=== PATIENT | female | born 1970 | race Caucasian/White ===

== ENCOUNTER 2018-06-02 17:29 | Emergency (ER) | payer SELFPAY ==
[~2018-06-02] VITALS: Ht 162.6 cm; Wt 65.9 kg
[2018-06-02 17:31] VITALS: BP 135/79
[2018-06-02] MEDS ORDERED: AMOX1255 PO (17:42)
[2018-06-02] MEDS ORDERED: HYDROCODONE/ACETAMINOPHEN 5-325 MG TABLET PO ONE (20:15)
== END 2018-06-02 20:27 | disposition home or self-care (01) ==
LOC: EMS 17:31
DX: K08.89 Other specified disorders of teeth and supporting structures (principal); Z79.899 Other long term (current) drug therapy

== ENCOUNTER 2018-09-21 22:48 | Emergency (ER) | payer SELFPAY ==
[~2018-09-21] VITALS: Ht 165.1 cm; Wt 68.6 kg
[~2018-09-21 22:48] MED LIST: AMOX1255 PO
[2018-09-22 00:04] LABS: BASOPHILS % (AUTO) 0.6 % (0.0-2.0); EOSINOPHILS % (AUTO) 0.9 % (1.0-6.0); HEMATOCRIT 45.3 % (36-46); HEMOGLOBIN 15.3 g/dL (12.0-16.0); LYMPHOCYTES # (AUTO) 1.1 K/uL (1.0-4.8); LYMPHOCYTES % (AUTO) 20.1 % (22.0-44.0); MEAN CORPUSCULAR HEMOGLOBIN 30.1 pg (26.0-34.0); MEAN CORPUSCULAR HGB CONC 33.7 G/dL (31.0-37.0); MEAN CORPUSCULAR VOLUME 89 fL (80-100); MONOCYTES # (AUTO) 0.6 K/uL (0.1-1.0); MONOCYTES % (AUTO) 11.4 % (2.0-9.0); NEUTROPHILS # (AUTO) 3.7 K/uL (1.8-7.7); PLATELET COUNT (AUTO) 194 K/uL (150-450); RED BLOOD CELL COUNT(AUTO) 5.07 MIL/uL (4.00-5.20); RED CELL DISTRIBUTION WIDTH 13.5 % (11.5-14.5)
[2018-09-22 00:09] LABS: APPEARANCE,URINE CLOUDY (CLEAR); BILIRUBIN,URINE NEGATIVE (NEGATIVE); GLUCOSE, URINE (UA) >=1000 mg/dL (NEGATIVE); KETONES,URINE >=80 mg/dL (NEGATIVE); LEUKOCYTE ESTERASE ,URINE MODERATE (NEGATIVE); NITRATE,URINE NEGATIVE (NEGATIVE); OCCULT BLOOD,URINE NEGATIVE (NEGATIVE); PH,URINE 6.5 (5.0-8.0); PROTEIN,URINE TRACE (NEGATIVE)
[2018-09-22 00:11] LABS: ANION GAP 9 mmol/L (8-16); CALCIUM, TOTAL 8.3 mg/dL (8.8-10.5); CARBON DIOXIDE 26 mmol/L (22-29); CHLORIDE 95 mmol/L (98-107); CREATININE 0.63 mg/dL (0.60-1.30); GLOMERULAR FILTR. RATE CALC > 60 mL/min (>60); GLUCOSE,RANDOM 278 mg/dL (70-110); POTASSIUM 3.5 mmol/L (3.5-5.1); SODIUM SERUM 130 mmol/L (136-145); UREA NITROGEN, BLOOD 17 mg/dL (7-18)
[2018-09-22 00:22] LABS: BACTERIA,URINE Rare /HPF (None Seen); COARSE GRANULAR CASTS,URINE 0-2 /LPF (None Seen); RBC,URINE 0-2 /HPF (0-2); SQUAMOUS EPITHELIAL CELL,UR Many /LPF (None Seen)
[2018-09-22 00:33] LABS: ALANINE AMINOTRANSFERASE 40 U/L (12-78); ALBUMIN 3.2 g/dL (3.4-5.0); ALKALINE PHOSPHATASE 84 U/L (46-116); AMYLASE 40 U/L (25-115); ASPARTATE AMINOTRANSFERASE 35 U/L (15-37); BILIRUBIN,TOTAL 0.5 mg/dL (0.1-1.0); HCG,QUANTITATIVE < 1 mIU/mL (0-6); LIPASE 145 U/L (73-393); TOTAL PROTEIN, SERUM 7.2 g/dL (6.4-8.2)
[2018-09-22] MEDS ORDERED: MECLIZINE HCL 25 MG TABLET PO ONE (01:00)
[2018-09-22] MEDS ORDERED: ACETAMINOPHEN 500 MG TABLET PO ONE (01:00)
[2018-09-22] MEDS ORDERED: SODIUM CHLORIDE 0.9% 1,000 ML IV ONE (01:00)
[2018-09-22] MEDS ORDERED: INSULIN REGULAR, HUMAN 100 UNITS/ML IVP ONE (01:00)
[2018-09-22] MEDS ORDERED: ONDANSETRON HCL 4 MG/2 ML VIAL IVP ONE (01:00)
[2018-09-22 02:34] LABS: GLUCOSE,POINT OF CARE 217 MG/DL (70-110)
[2018-09-22 02:47] VITALS: BP 121/72
== END 2018-09-22 03:05 | disposition home or self-care (01) ==
LOC: EMS 22:49
DX: K29.70 Gastritis, unspecified, without bleeding (principal); E11.8 Type 2 diabetes mellitus with unspecified complications; K80.21 Calculus of gallbladder without cholecystitis with obstruction; E11.9 Type 2 diabetes mellitus without complications
CPT/HCPCS: 36415; 76700; 80053; 81001; 81002; 82150; 82962; 83690; 84702; 85025; 87086; 96361; 96374; 96375; 99284; J1815; J2405; J7030